=== PATIENT | female | born 1965 | race Caucasian/White ===

== ENCOUNTER 2016-08-09 01:02 | Emergency (ER) | payer OTHER, SELFPAY ==
[~2016-08-09] VITALS: Ht 177.8 cm; Wt 62.7 kg
[~2016-08-09 01:02] MED LIST: ACET-2635 PO; LEVE500T53 PO; PHEN300C6 PO
[2016-08-09] MEDS ORDERED: PERA1TAB PO (01:12)
[2016-08-09] MEDS ORDERED: ESLI200T PO (01:12)
[2016-08-09 01:24] VITALS: BP 147/93
== END 2016-08-09 02:21 | disposition home or self-care (01) ==
LOC: EMS 01:03
DX: B86 Scabies (principal)
CPT/HCPCS: 99282

== ENCOUNTER 2016-08-19 10:17 | Emergency (ER) | payer OTHER ==
[~2016-08-19] VITALS: Ht 177.8 cm; Wt 61.4 kg
[~2016-08-19 10:17] MED LIST changes: -ACET-2635 PO; +ESLI200T PO; +PERA1TAB PO
[2016-08-19] MEDS ORDERED: NACL1 PO (10:34)
[2016-08-19] MEDS ORDERED: SERT100T12 PO (10:34)
[2016-08-19] MEDS ORDERED: GABA-531 PO (10:34)
[2016-08-19] MEDS ORDERED: LEVE500T53 PO (10:34)
[2016-08-19] MEDS ORDERED: BRIV50TA PO (10:34)
[2016-08-19] MEDS ORDERED: PHEN100C23 PO (10:34)
[2016-08-19 10:48] VITALS: BP 110/76
== END 2016-08-19 11:41 | disposition home or self-care (01) ==
LOC: EMS 10:20
DX: Z76.0 Encounter for issue of repeat prescription (principal); G40.909 Epilepsy, unspecified, not intractable, without status epilepticus
CPT/HCPCS: 99283

== ENCOUNTER 2016-09-16 19:24 | Emergency (ER) | payer OTHER ==
[~2016-09-16] VITALS: Ht 175.3 cm; Wt 61.4 kg
[~2016-09-16 19:24] MED LIST changes: +BRIV50TA PO; +GABA-531 PO; +NACL1 PO; -PERA1TAB PO; +PHEN100C23 PO; -PHEN300C6 PO; +SERT100T12 PO
[2016-09-16] MEDS ORDERED: LORazepam 2 MG/ML VIAL ONE (19:47)
[2016-09-16] MEDS ORDERED: LORazepam 2 MG/ML VIAL IM ONE (20:00)
[2016-09-16 20:10] LABS: BASOPHILS % (AUTO) 0.2 % (0.0-2.0); EOSINOPHILS % (AUTO) 0 % (1.0-6.0); HEMATOCRIT 40.7 % (36-46); HEMOGLOBIN 13.9 g/dL (12.0-16.0); LYMPHOCYTES # (AUTO) 1.7 K/uL (1.0-4.8); LYMPHOCYTES % (AUTO) 29.2 % (22.0-44.0); MEAN CORPUSCULAR HEMOGLOBIN 32.3 pg (26.0-34.0); MEAN CORPUSCULAR HGB CONC 34.1 G/dL (31.0-37.0); MEAN CORPUSCULAR VOLUME 95 fL (80-100); MONOCYTES # (AUTO) 0.5 K/uL (0.1-1.0); MONOCYTES % (AUTO) 9.1 % (2.0-9.0); NEUTROPHILS # (AUTO) 3.5 K/uL (1.8-7.7); NEUTROPHILS % (AUTO) 61.5 % (40.0-70.0); PLATELET COUNT (AUTO) 289 K/uL (150-450); RED CELL DISTRIBUTION WIDTH 12.6 % (11.5-14.5); WHITE BLOOD COUNT (AUTO) 5.8 K/uL (4.5-11.0)
[2016-09-16 20:18] LABS: ANION GAP 7 mmol/L (8-16); CALCIUM, TOTAL 9.1 mg/dL (8.8-10.5); CARBON DIOXIDE 30 mmol/L (22-29); CHLORIDE 101 mmol/L (98-107); CREATININE 0.78 mg/dL (0.60-1.30); GLOMERULAR FILTR. RATE CALC > 60 mL/min (>60); POTASSIUM 4.3 mmol/L (3.5-5.1); SODIUM SERUM 138 mmol/L (136-145); UREA NITROGEN, BLOOD 13 mg/dL (7-18)
[2016-09-16 20:23] LABS: ALANINE AMINOTRANSFERASE 33 U/L (12-78); ALBUMIN 3.9 g/dL (3.4-5.0); ASPARTATE AMINOTRANSFERASE 25 U/L (15-37); BILIRUBIN,TOTAL 0.2 mg/dL (0.1-1.0); TOTAL PROTEIN, SERUM 7.9 g/dL (6.4-8.2)
[2016-09-16] MEDS ORDERED: PHENYTOIN SODIUM 1,000 MG in SODIUM CHLORIDE 0.9% 150 ML IV ONE (21:15)
[2016-09-16 22:00] VITALS: BP 135/86
[2016-09-16] MEDS ORDERED: SODIUM CHLORIDE 0.9% 1,000 ML IV ONE (22:00)
== END 2016-09-16 23:42 | disposition home or self-care (01) ==
LOC: EMS 19:25
DX: G40.909 Epilepsy, unspecified, not intractable, without status epilepticus (principal); R79.1 Abnormal coagulation profile; R51 Headache; F32.9 Major depressive disorder, single episode, unspecified; F10.20 Alcohol dependence, uncomplicated; Z59.0 Homelessness
CPT/HCPCS: 36415; 70450; 80053; 80185; 80307; 85025; 93005; 96372; 96374; 99285; J1165; J2060; J7050

== ENCOUNTER 2016-10-27 01:46 | Emergency (ER) | payer OTHER ==
[~2016-10-27] VITALS: Ht 175.3 cm; Wt 46.0 kg
[~2016-10-27 01:46] MED LIST changes: -ESLI200T PO; -LEVE500T53 PO
[2016-10-27] MEDS ORDERED: FERR-89 PO (02:04)
[2016-10-27] MEDS ORDERED: ASCO500 PO (02:04)
[2016-10-27] MEDS ORDERED: PHEN100C9 PO (02:04)
[2016-10-27] MEDS ORDERED: CALC-1038 PO (02:04)
[2016-10-27] MEDS ORDERED: PERA4TAB PO (02:04)
[2016-10-27] MEDS ORDERED: BRIV25TA PO (02:04)
[2016-10-27] MEDS ORDERED: IBUP-2071 PO (02:04)
[2016-10-27] MEDS ORDERED: MULT1CAP32 PO (02:04)
[2016-10-27] MEDS ORDERED: LEVE500T53 PO (02:04)
[2016-10-27] MEDS ORDERED: ACET-2247 PO (02:04)
[2016-10-27 02:32] LABS: BASOPHILS % (AUTO) 0.2 % (0.0-2.0); EOSINOPHILS % (AUTO) 0 % (1.0-6.0); HEMATOCRIT 40.4 % (36-46); HEMOGLOBIN 13.8 g/dL (12.0-16.0); LYMPHOCYTES # (AUTO) 2.1 K/uL (1.0-4.8); LYMPHOCYTES % (AUTO) 49.5 % (22.0-44.0); MEAN CORPUSCULAR HEMOGLOBIN 31.9 pg (26.0-34.0); MEAN CORPUSCULAR HGB CONC 34.1 G/dL (31.0-37.0); MEAN CORPUSCULAR VOLUME 94 fL (80-100); MONOCYTES # (AUTO) 0.4 K/uL (0.1-1.0); MONOCYTES % (AUTO) 8.9 % (2.0-9.0); NEUTROPHILS # (AUTO) 1.8 K/uL (1.8-7.7); NEUTROPHILS % (AUTO) 41.4 % (40.0-70.0); PLATELET COUNT (AUTO) 244 K/uL (150-450); RED BLOOD CELL COUNT(AUTO) 4.31 MIL/uL (4.00-5.20); RED CELL DISTRIBUTION WIDTH 12.8 % (11.5-14.5); WHITE BLOOD COUNT (AUTO) 4.3 K/uL (4.5-11.0)
[2016-10-27 03:02] LABS: ANION GAP 6 mmol/L (8-16); CALCIUM, TOTAL 8.8 mg/dL (8.8-10.5); CARBON DIOXIDE 30 mmol/L (22-29); CHLORIDE 102 mmol/L (98-107); CREATININE 0.69 mg/dL (0.60-1.30); GLOMERULAR FILTR. RATE CALC > 60 mL/min (>60); SODIUM SERUM 138 mmol/L (136-145); UREA NITROGEN, BLOOD 13 mg/dL (7-18)
[2016-10-27 03:08] LABS: ALANINE AMINOTRANSFERASE 47 U/L (12-78); ALBUMIN 3.9 g/dL (3.4-5.0); ASPARTATE AMINOTRANSFERASE 34 U/L (15-37); BILIRUBIN,TOTAL 0.3 mg/dL (0.1-1.0); TOTAL PROTEIN, SERUM 7.7 g/dL (6.4-8.2)
[2016-10-27] MEDS ORDERED: SODIUM CHLORIDE 0.9% IV ONE (04:30)
[2016-10-27] MEDS ORDERED: LORazepam 2 MG/ML VIAL IVP ONE (04:30)
[2016-10-27] MEDS ORDERED: PHENYTOIN SODIUM IV ONE (04:30)
[2016-10-27 06:38] VITALS: BP 114/68
== END 2016-10-27 06:43 | disposition home or self-care (01) ==
LOC: EMS 01:48
DX: G40.909 Epilepsy, unspecified, not intractable, without status epilepticus (principal)
CPT/HCPCS: 36415; 80053; 80185; 80307; 85025; 96365; 96375; 99284; G0482; J1165; J2060; J7050

== ENCOUNTER 2016-12-23 18:36 | Emergency (ER) | payer OTHER ==
[~2016-12-23] VITALS: Ht 172.7 cm; Wt 61.4 kg
[~2016-12-23 18:36] MED LIST changes: +ACET-2247 PO; +ASCO500 PO; +BRIV25TA PO; +CALC-1038 PO; +FERR-89 PO; +IBUP-2071 PO; +LEVE500T53 PO; +MULT1CAP32 PO; +PERA4TAB PO; -PHEN100C23 PO; +PHEN100C9 PO
[2016-12-23] MEDS ORDERED: SODIUM CHLORIDE 0.9% 1,000 ML IV ONE ×2 (19:15)
[2016-12-23 19:34] LABS: BASOPHILS % (AUTO) 0.2 % (0.0-2.0); EOSINOPHILS % (AUTO) 0 % (1.0-6.0); HEMATOCRIT 38.5 % (36-46); HEMOGLOBIN 13.2 g/dL (12.0-16.0); LYMPHOCYTES # (AUTO) 2.3 K/uL (1.0-4.8); LYMPHOCYTES % (AUTO) 40.5 % (22.0-44.0); MEAN CORPUSCULAR HEMOGLOBIN 32.5 pg (26.0-34.0); MEAN CORPUSCULAR HGB CONC 34.2 G/dL (31.0-37.0); MEAN CORPUSCULAR VOLUME 95 fL (80-100); MONOCYTES # (AUTO) 0.3 K/uL (0.1-1.0); MONOCYTES % (AUTO) 6.2 % (2.0-9.0); NEUTROPHILS % (AUTO) 53.1 % (40.0-70.0); PLATELET COUNT (AUTO) 298 K/uL (150-450); RED BLOOD CELL COUNT(AUTO) 4.06 MIL/uL (4.00-5.20); RED CELL DISTRIBUTION WIDTH 12.4 % (11.5-14.5); WHITE BLOOD COUNT (AUTO) 5.7 K/uL (4.5-11.0)
[2016-12-23 19:37] LABS: ANION GAP 7 mmol/L (8-16); CALCIUM, TOTAL 8.2 mg/dL (8.8-10.5); CARBON DIOXIDE 28 mmol/L (22-29); CHLORIDE 102 mmol/L (98-107); CREATININE 0.56 mg/dL (0.60-1.30); GLOMERULAR FILTR. RATE CALC > 60 mL/min (>60); POTASSIUM 3.4 mmol/L (3.5-5.1); SODIUM SERUM 137 mmol/L (136-145); UREA NITROGEN, BLOOD 11 mg/dL (7-18)
[2016-12-23 19:49] LABS: ALANINE AMINOTRANSFERASE 39 U/L (12-78); ALBUMIN 3.7 g/dL (3.4-5.0); ASPARTATE AMINOTRANSFERASE 29 U/L (15-37); BILIRUBIN,TOTAL 0.1 mg/dL (0.1-1.0); TOTAL PROTEIN, SERUM 7.2 g/dL (6.4-8.2)
[2016-12-23 21:34] VITALS: BP 113/60
[2016-12-24 00:11] LABS: GLUCOSE,POINT OF CARE 110 MG/DL (70-110)
== END 2016-12-23 21:38 | disposition home or self-care (01) ==
LOC: EMS 18:37
DX: F10.229 Alcohol dependence with intoxication, unspecified (principal); F32.9 Major depressive disorder, single episode, unspecified; Z59.0 Homelessness; Y90.8 Blood alcohol level of 240 mg/100 ml or more
CPT/HCPCS: 36415; 80053; 80185; 82948; 82962; 85025; 93005; 96360; 96361; 99285; G0480; J7030